=== PATIENT | female | born 1970 | race Caucasian/White ===

== ENCOUNTER 2016-05-19 09:14 | Inpatient (IN) | payer OTHER ==
--- NOTE | ~2016-05-19 | OR ---
Unit #: [id number] #: [id number] Patient: TERE ARANDA [id number] [address] [place], [place] [address] [id number] I MR#: [id number] NAME: TERE ARANDA ROOM: 457 Date of Procedure: 05/22/2016 Admission Date: 05/21/2016 Surgeon: Tee Corona M.D. : 1970 Attending Physician: Salvador Uriarte M.D. Primary Care Physician: Fausto Dohsi M.D. OPERATIVE REPORT PROCEDURE PERFORMED Esophagogastroduodenoscopy with biopsy. INDICATIONS FOR PROCEDURE A 45-year-old lady with persistent severe nausea, vomiting, and epigastric pain, undergoing evaluation. She has history of lap band placement; however, there is no fluid in the lap band. MEDICATIONS Monitored anesthesia. POSTOPERATIVE FINDINGS 1. Lap band in place. 2. There was a large portion of stomach above the lap band causing a large hernial effect. There was a lot of food and fluids in that section, which was aspirated. 3. Mild gastritis. Biopsies taken. 4. Normal duodenum and distal duodenum. PLAN Symptomatic treatment for now. Diet discussed. We will consider discussing with LSA for removal of the lap band. DESCRIPTION OF PROCEDURE The patient was explained of the procedure, risks, and benefits along with risks and benefits of anesthesia. She was brought to the endoscopy room. Propofol anesthesia was given. Bite block was placed. The scope was passed down the mouth into the esophagus, stomach, duodenum, and distal duodenum. Findings as described. Contents from the esophagus were aspirated. She tolerated the procedure very well. No major complications were seen. Dictated by... Judith Vora/ruth TD: 05/22/2016 22:13 JOB #: [id number] Unit #: [id number] #: [id number] Patient: TERE ARANDA OPERATIVE REPORT X Tee Corona MD X PROCEDURE OPERATIVE NOTE
--- NOTE | ~2016-05-19 | OR ---
Unit #: [id number] #: [id number] Patient: TERE ARANDA [id number] [address] [address] [id number] Reina MR#: [id number] NAME: TERE ARANDA ROOM: [facility] Date of Procedure: 05/25/2016 Admission Date: 05/21/2016 Surgeon: Joseluis Lopez M.D. : 1970 Attending Physician: Salvador Uriarte M.D. Primary Care Physician: Fausto Doshi M.D. OPERATIVE REPORT PREOPERATIVE DIAGNOSES 1. Chronic nausea and vomiting. 2. Lap band intolerance. POSTOPERATIVE DIAGNOSES 1. Chronic nausea and vomiting. 2. Lap band intolerance. PROCEDURES PERFORMED 1. Removal of laparoscopic adjustable gastric band. 2. Removal of laparoscopic band port. SIZE TESTER None. ANESTHESIA General anesthesia. ESTIMATED BLOOD LOSS Minimal. IV FLUIDS 800 crystalloid. COMPLICATIONS None. INDICATIONS FOR PROCEDURE The patient is a 45-year-old lady with long-term lap band, who presents with difficulty with tolerating oral intake. She presents for lap band removal. DESCRIPTION OF PROCEDURE The patient was taken to the operating theater and placed in supine position. General anesthesia was induced. Her abdomen was prepped and draped. A 10-mm Visiport was then placed into the left upper quadrant without difficulty. The abdomen was insufflated to 15 mmHg with CO2. Direct inspection of the abdomen revealed normal appearing tubing and I saw no evidence of inflammation or infection. An incision was then made over her previous lap band port site. This was located and free of its connective tissue to the fascia. I then cut the tubing and dropped this down to the abdomen. I placed a 5-mm port at this site. I then Unit #: [id number] #: [id number] Patient: TERE ARANDA placed a right upper quadrant 5 mm port. There were adhesions to the band and I saw no gross abnormalities. I did not see an obvious slip. These adhesions were taken down. I cut the band. This was then removed from the abdominal cavity. I then removed our trocars. I closed with interrupted 4-0 Vicryl. The patient tolerated the procedure well and sent to recovery room in good condition. Dictated by... Joseluis Lopez M.D. JNO/modl TD: 05/26/2016 06:05 JOB #: [id number] OPERATIVE REPORT X Joseluis Lopez MD PROCEDURE OPERATIVE NOTE
--- NOTE | ~2016-05-19 | MY11 ---
[facility] A Service of [facility] RADIOLOGY TEXT RESULTS PATIENT: TERE ARANDA LOCATION: [facility] : [birth year] UNIT #: [id number] AGE: [address]: Fausto Doshi MD SEX: F ORDER DR: [id number] [place] [id number] O MR#: [id number] Acc #: [id number] NAME: TERE ARANDA : 1970 SEX: F STUDY DATE/TIME: 05/19/2016 9:51 UNIT: [facility] ROOM: STUDY DESCRIPTION: MY Mammogram Screening Dig Alan Attending Physician: Fausto Doshi M.D. Referring Physician: Fausto Doshi M.D. Ordering Physician: Fausto Doshi M.D. Primary Care Physician: Salvador Uriarte M.D. MEDICAL IMAGING REPORT This report is preliminary unless electronic signature is present. EXAM Digital screening mammogram with CAD. INDICATION Routine screening. PROCEDURE Bilateral CC and MLO views obtained on a digital mammography unit. FDA-approved CAD device is utilized. COMPARISON 05/17/2015 FINDINGS Scattered fibroglandular density. No dominant mass. No suspicious calcification. IMPRESSION Negative screening mammogram. Screening interval in 1 year is suggested. Patients over the age of 40 are entered into a reminder system with target due date for the next mammogram. A result letter will also be sent to the patient. BIRADS: 1 Negative Dictated by... Mahad Tinsley M.D. THIS IS AN ELECTRONICALLY VERIFIED REPORT [facility] A Service of [facility] RADIOLOGY TEXT RESULTS PATIENT: TERE ARANDA LOCATION: [facility] : [birth year] UNIT #: [id number] AGE: [address]: Fausto Doshi MD SEX: F ORDER DR: Mahad Tinsley M.D. at 05/20/2016 7:08 AM EED/yasminw TD: 05/19/2016 11:53 JOB #: [id number] MEDICAL IMAGING REPORT
--- NOTE | ~2016-05-19 | HP ---
Unit #: [id number] #: [id number] Patient: TERE TOM [id number] [address] [address] [id number] I MR#: [id number] NAME: TERE TOM ROOM: 457 Age: 45 Sex: F Admission Date: 05/21/2016 : 1970 Attending Physician: Salvador Uriarte M.D. Primary Care Physician: Fausto Doshi M.D. HISTORY AND PHYSICAL ADMISSION DIAGNOSES 1. Intractable nausea and vomiting. 2. History of gastroesophageal reflux disease. 3. History of hiatal hernia. 4. History of morbid obesity, status post Lap-Band. 5. Anemia of chronic disease. 6. Continued tobacco use. HISTORY OF PRESENT ILLNESS Ms. Tom is a 45-year-old female with a history of morbid obesity, GERD, and hiatal hernia, patient of Dr. Doshi, who is on PPI chronically secondary to severe acid reflux secondary to Lap-Band and hiatal hernia. Apparently, she was seen by Dr. Doshi and was sent as a direct admit secondary to intractable nausea and vomiting for two weeks. Patient denies any fever or chills and denies any chest pain, shortness of air, dyspnea, headache, dizziness, abdominal pain, or diarrhea. So a 12-point review of systems on this patient basically is negative except as above. PAST MEDICAL HISTORY 1. History of morbid obesity. 2. Hiatal hernia. 3. Gastroesophageal reflux disease. 4. Previous history of depression and anxiety. PAST SURGICAL HISTORY 1. Lap-Band. 2. Upper scope per Dr. Corona. HOME MEDICATIONS 1. ProAir p.r.n. 2. Benadryl. 3. Zyrtec. 4. Vitamin D3. 5. Dulera. 6. Ventolin. 7. Claritin. 8. Dexilant. ALLERGIES ASPIRIN, SALICYLATES, AND PYRAZOLES. SOCIAL HISTORY She is an active smoker. Denies any alcohol or illicit drugs. Unit #: [id number] #: [id number] Patient: TERE TOM FAMILY HISTORY Unremarkable. PHYSICAL EXAMINATION GENERAL: Patient is a 45-year-old female in no acute distress. VITAL SIGNS: Blood pressure 105/55, heart rate 63, respirations 20, and temperature 97.9. HEENT: Head is atraumatic. Pupils equal, round, and reactive to light and accommodation. Extraocular muscles intact. Oropharynx clear. NECK: Supple. No mass, no JVD, and no bruits. CHEST: Diminished bilaterally at bases. CARDIOVASCULAR: S1 and S2. No murmurs. ABDOMEN: Soft, nontender, and nondistended. LOWER EXTREMITIES: Without any significant cyanosis, clubbing, or edema. NEUROLOGIC: Grossly intact with no focal deficits. Alert and oriented x3. DIAGNOSTIC STUDIES LABORATORY: White count is 11.9 and hemoglobin and hematocrit 9.6 and 30. ASSESSMENT AND PLAN 1. Intractable nausea and vomiting. Continue supportive care and symptomatic management. Dr. Corona to see. Most likely will need an EGD and also may need a gastric emptying study to rule out gastroparesis. 2. History of morbid obesity, status post Lap-Band. 3. History of hiatal hernia with gastroesophageal reflux disease. Continue proton pump inhibitor. 4. Anemia of chronic disease most likely related to Lap-Band. 5. Leukocytosis. Will monitor. If it is persistent, will check a urinalysis and chest x-ray. 6. Tobacco use. Counseled on importance of quitting. 7. Gastrointestinal and deep venous thrombosis prophylaxis. Continue proton pump inhibitor and put on TEDs to her lower extremities. 1. Dictated by Judith Frankel/venita TD: 05/21/2016 21:10 JOB #: [id number] HISTORY AND PHYSICAL X Anjum Cortez MD X HISTORY AND PHYSICAL
--- NOTE | ~2016-05-19 | CR63 ---
[facility] A Service of [facility] RADIOLOGY TEXT RESULTS PATIENT: TERE ARANDA LOCATION: [facility] 457-01 : [birth year] UNIT #: [id number] AGE: [address]: Salvador Uriarte MD SEX: F ORDER DR: [id number] [facility] [address] [place], [place] [address] [id number] I MR#: [id number] Acc #: [id number] NAME: TERE ARANDA : 1970 SEX: F STUDY DATE/TIME: 05/23/2016 17:22 UNIT: B ROOM: [facility] STUDY DESCRIPTION: CR Chest 2 View Attending Physician: Salvador Uriarte M.D. Ordering Physician: Luz Clark M.D. Primary Care Physician: Fausto Doshi M.D. MEDICAL IMAGING REPORT This report is preliminary unless electronic signature is present EXAM PA and lateral chest HISTORY Cough and asthma for 1 month FINDINGS 2 views of the chest demonstrate the cardiac size and pulmonary vascularity are normal. No infiltrates or effusions. Laparoscopic gastric band in the medial left upper quadrant. IMPRESSION No acute findings. Dictated by... Marcello Chang M.D. THIS IS AN ELECTRONICALLY VERIFIED REPORT Marcello Chang M.D. at 05/24/2016 1:57 PM DFL/to TD: 05/24/2016 11:55 JOB #: [id number] MEDICAL IMAGING REPORT COPY
--- NOTE | ~2016-05-19 | DS ---
Unit #: [id number] #: [id number] Patient: TERE ARANDA [id number] [facility] [address] [facility] [place] [facility]. [place], [place] [address] [id number] I MR#: [id number] NAME: TERE ARADNA ROOM: [facility] Age: 45 Sex: F Admission Date: 05/21/2016 : 1970 Discharge Date: 05/26/2016 Attending Physician: Salvador Uriarte M.D. Primary Care Physician: Fausto Doshi M.D. DISCHARGE SUMMARY FINAL DIAGNOSES 1. Intractable nausea and vomiting which is resolved. 2. Status post EGD which was done by Dr. Corona which showed lap band in place. There was a large portion of stomach above the lap band causing a large hernia effect. There was a lot of food and fluids in that section, which was aspirated. Mild gastritis. Biopsies taken. Normal duodenum and distal duodenum. 3. Anemia of chronic disease. 4. Tobacco abuse. DISCHARGE MEDICATIONS 1. Albuterol inhaler. Continue home dose. 2. Tylenol 325 mg q.6 h. p.r.n. 3. Benadryl p.r.n. 4. Claritin 10 mg p.r.n. 5. Singulair 10 mg daily. 6. Hydrocodone 5/325 one tablet q.8 h. p.r.n. 7. Dexilant 60 mg daily. 8. Vitamin D daily. CONSULTATIONS DURING hospitalization 1. Dr. Corona from gastroenterology services. 2. Dr. Lopez from [facility]. PROCEDURES PERFORMED 1. EGD. 2. Lap band removal. DIAGNOSTIC STUDIES LABORATORY: Lab workup on discharge WBC 9.0, hemoglobin 8.1, hematocrit 24.8 and platelet count of 176, sodium 140, potassium 3.8, chloride 110, BUN 5, creatinine 0.6, liver enzymes are stable, blood cultures are no growth. HOSPITAL COURSE Miss Berry is a 45-year-old female who was admitted by my colleague, Dr. Cortez, with intractable nausea and vomiting. Patient was admitted to the fourth floor in [facility]. Dr. Corona was consulted. Patient had EGD done. Findings are as above. Patient has had significant weight loss and not able to tolerate any food or any liquid. Dr. Lopez was consulted and patient had lap band removal. She is doing very well. She is very happy and is able to eat some. Patient is being discharge home on above medication. Unit #: [id number] #: [id number] Patient: TERE ARANDA DISCHARGE INSTRUCTIONS 1. Follow up with primary care provider in one week. 2. Follow up with Dr. Corona in one month. Dictated by... Luz Clark M.D. MARILEE/enzo TD: 05/27/2016 22:25 JOB #: [id number] DISCHARGE SUMMARY X Luz Clark MD X DISCHARGE SUMMARY
--- NOTE | ~2016-05-19 | CO ---
Unit #: [id number] #: [id number] Patient: TERE ARANDA [id number] [address] [place], [place] [address] [id number] I MR#: [id number] NAME: TERE ARANDA ROOM: [facility] Age: 45 Sex: F Admission Date: 05/21/2016 : 1970 Attending Physician: Salvador Uriarte M.D. Primary Care Physician: Fausto Doshi M.D. Consultation Date: 05/25/2016 CONSULTATION REPORT BRIEF HISTORY The patient is a 45-year-old lady, who has a long history of intermittent nausea and vomiting. She was admitted to the hospital, worked up with GI Medicine and found to have hiatal hernia with a gastric outlet obstruction secondary to lap-band. She has been noncompliant with the lap-band, has not seen our program for many years. She denies any fevers or chills. No abdominal pain. PAST MEDICAL HISTORY She has had no other abdominal operations. MEDICATIONS Proton pump inhibitors, Iysel-D, vitamin D, Benadryl, loratadine. SOCIAL HISTORY No smoking. No alcohol. FAMILY HISTORY Negative for GI malignancy. REVIEW OF SYSTEMS No cardiopulmonary complaints at this time. Else, 10 systems reviewed and negative. PHYSICAL EXAMINATION GENERAL: She is awake, alert, and appropriate. VITAL SIGNS: Currently afebrile. HEENT: Unremarkable. NECK: Supple. No JVD. Trachea midline. LUNGS: Clear to auscultation. Bilateral breath sounds symmetric. CARDIOVASCULAR: Regular rate and rhythm. ABDOMEN: Soft, nontender, and nondistended. I palpate no masses. No hepatosplenomegaly. EXTREMITIES: No clubbing, cyanosis, or edema. DIAGNOSTIC STUDIES LABORATORY RESULTS: Show a white count of 8.3, hemoglobin 8.1. Chemistries are normal. ASSESSMENT AND PLAN Chronic gastric outlet obstruction secondary to a lap-band. PLAN Recommend removal of lap-band. Discussed in detail. Unit #: [id number] #: [id number] Patient: TERE ARANDA Dictated by... Judith Ramirez/ruth TD: 05/25/2016 20:50 JOB #: [id number] CONSULTATION REPORT X Joseluis Lopez MD CONSULTATION REPORT
--- NOTE | ~2016-05-19 | CO ---
Unit #: [id number] #: [id number] Patient: TERE ARANDA [id number] [address] [address] [id number] I MR#: [id number] NAME: TERE ARANDA ROOM: [facility] Age: 45 Sex: F Admission Date: 05/21/2016 : 1970 Attending Physician: Salvador Uriarte M.D. Primary Care Physician: Fausto Doshi M.D. Consultation Date: 05/22/2016 CONSULTATION REPORT REASON FOR CONSULTATION Persistent nausea and vomiting. HISTORY OF PRESENTING ILLNESS The patient reports a 2-week history of persistent nausea and vomiting. She has had episodes similar to this in the past; however, this is much worse, unable to even hold down liquids. She denies fevers, chills, shortness of breath, abdominal pain, change in bowel habits. The patient does report having a Lap-Band placed about 10 years ago; however, she describes it as a donut. There is no fluid currently in it. PAST MEDICAL HISTORY Hiatal hernia, GERD, depression, anxiety, previous Lap-Band placement about 10 years ago, previous EGD in 02/2015 showing significant esophagitis, gastritis as well as a small duodenal ulcer. HOME MEDICATIONS ProAir, Benadryl, Zyrtec, vitamin D3, Dulera, Ventolin, Claritin, Dexilant. ALLERGIES Aspirin, pyrazole. SOCIAL HISTORY The patient is an active everyday smoker. Denies alcohol or illicit drug use. FAMILY HISTORY Reviewed and noncontributory. REVIEW OF SYSTEMS A complete 10-point review of systems was completed and negative except as mentioned in the HPI. PHYSICAL EXAMINATION GENERAL: The patient is a pleasant 45-year-old female, currently in no acute distress. VITAL SIGNS: Temperature is 97.8, pulse is 65, respirations 16, blood pressure is 106/62. HEENT: PERRLA. NECK: Supple. CARDIAC: S1 and S2. LUNGS: Clear to auscultation. ABDOMEN: Soft, rounded, nontender, nondistended. Positive bowel sounds. NEUROLOGIC: The patient is alert, awake, and oriented x3. Unit #: [id number] #: [id number] Patient: TERE ARANDA DIAGNOSTIC STUDIES LABORATORY RESULTS: Chemistry is normal. White count 7.3, hemoglobin is 9.1, hematocrit is 28.4, MCV and MCH are 75.1 and 24 respectively, platelets are 157. ASSESSMENT/PLAN 1. Persistent nausea and vomiting. Continue PPI therapy. Continue Phenergan and Zofran as needed. We will plan an esophagogastroduodenoscopy today for further evaluation. Further recommendations to follow. 2. History of gastroesophageal reflux disease, on chronic PPI therapy. Thank you for this interesting consult. We will continue to follow along. Dictated by... Marisela John A.P.R.N. for Judith Vora/ruth TD: 05/23/2016 00:27 JOB #: [id number] CONSULTATION REPORT X X CONSULTATION REPORT
[~2016-05-19 09:14] MED LIST: ALBUTEROL0.83 MG/ML IH; ALBUTEROL17 GM INH; AMOXICILLIN; BENADRYL25 M1 PO; BENADRYL25 M3 PO; CARAFATE1 G PO; CELEBREX PO; CYMBALTA; DULERA 100 MCG/13 GM IH; OMEPRAZOLE40 M1 PO; PROAIR HFA8.5 GM IH; PROTONIX PO; ROBAXIN500 MG PO; SEROQUEL50 M1 PO; SINGULAIR; VOLTAREN75 MG PO
[2016-05-21] MEDS ORDERED: VITAMIN D31000 UNIT PO (15:40)
[2016-05-21] MEDS ORDERED: MONTELUKAST SOD10 MG PO (15:40)
[2016-05-21] MEDS ORDERED: DULERA 100 MCG/13 GM INH (15:41)
[2016-05-21] MEDS ORDERED: ALBUTEROL17 GM INH (15:42)
[2016-05-21] MEDS ORDERED: TYL325 PO (15:42)
[2016-05-21] MEDS ORDERED: CLARITIN10 M2 PO (15:42)
[2016-05-21] MEDS ORDERED: DEXILANT60 MG PO (15:46)
[2016-05-21 16:11] LABS: BASOPHIL# 0.1 X10e3 (0-0.3); BASOPHIL% 0.5 % (0-2.5); EOSINOPHIL# 0.3 X10e3 (0-0.7); EOSINOPHIL% 2.6 % (0.0-7.0); HEMATOCRIT 30.6 % (35.0-45.0); HEMOGLOBIN 9.6 gm/dL (12.0-16.0); LYMPHOCYTE# 2.5 X10e3 (1.0-3.5); MEAN CELL VOLUME 75.4 FL (83-96); MEAN CORPUSCULAR HEMOGLOBIN 23.7 PG (28-34); MEAN CORPUSCULAR HGB CONC 31.4 g/dL (30-36); MONOCYTE# 0.6 X10e3 (0-1.0); NEUTROPHIL# 8.5 X10e3 (1.5-7.1); NEUTROPHIL% 70.9 % (40-75); PLATELET COUNT 166 X10e3 (140-420); RED BLOOD COUNT 4.05 X10e (3.90-5.30); RED CELL DISTRIBUTION WIDTH 17.8 % (11.0-15.5); WHITE BLOOD COUNT 11.9 X10e3 (4.0-10.5)
[2016-05-21 16:37] LABS: DIFF IND NO
[2016-05-21 19:36] LABS: ALBUMIN SERUM 3.9 g/dL (3.5-5.0); ALKALINE PHOSPHATASE 61 U/L (32-92); ALT (SGPT) 8 U/L (10-40); AST (SGOT) 14 U/L (10-42); BILIRUBIN,TOTAL 0.5 mg/dL (0.2-2.0); BLOOD UREA NITROGEN 11 mg/dL (9-23); BUN/CREATININE RATIO 15.71; CALCIUM SERUM 8.3 mg/dL (8.4-10.2); CARBON DIOXIDE 26 mmol/L (22-31); CHLORIDE 103 mmol/L (100-111); CREATININE SERUM 0.7 mg/dL (0.6-1.4); GLOM FILT RATE Estimated ABOVE60 mL/min (>60); GLUCOSE FASTING 89 mg/dL (70-110); POTASSIUM 3.8 mmol/L (3.5-5.1); SODIUM 132 mmol/L (135-145)
[2016-05-22 03:51] LABS: BASOPHIL% 0.6 % (0-2.5); EOSINOPHIL# 0.4 X10e3 (0-0.7); EOSINOPHIL% 5.3 % (0.0-7.0); HEMATOCRIT 28.4 % (35.0-45.0); HEMOGLOBIN 9.1 gm/dL (12.0-16.0); LYMPHOCYTE# 2.5 X10e3 (1.0-3.5); LYMPHOCYTE% 34.8 % (17.0-45.0); MEAN CELL VOLUME 75.1 FL (83-96); MEAN CORPUSCULAR HGB CONC 31.9 g/dL (30-36); MEAN PLATELET VOLUME 9.1 FL (6.5-11.5); MONOCYTE# 0.5 X10e3 (0-1.0); MONOCYTE% 6.3 % (3.0-12.0); NEUTROPHIL# 3.8 X10e3 (1.5-7.1); PLATELET COUNT 157 X10e3 (140-420); RED BLOOD COUNT 3.78 X10e (3.90-5.30); RED CELL DISTRIBUTION WIDTH 17.5 % (11.0-15.5); WHITE BLOOD COUNT 7.3 X10e3 (4.0-10.5)
[2016-05-22 03:53] LABS: DIFF IND NO
[2016-05-22 04:20] LABS: ALBUMIN SERUM 3.5 g/dL (3.5-5.0); ALKALINE PHOSPHATASE 56 U/L (32-92); ALT (SGPT) 7 U/L (10-40); AST (SGOT) 12 U/L (10-42); BILIRUBIN,TOTAL 0.4 mg/dL (0.2-2.0); BLOOD UREA NITROGEN 7 mg/dL (9-23); CALCIUM SERUM 8.6 mg/dL (8.4-10.2); CARBON DIOXIDE 26 mmol/L (22-31); CHLORIDE 109 mmol/L (100-111); CREATININE SERUM 0.7 mg/dL (0.6-1.4); GLOM FILT RATE Estimated ABOVE60 mL/min (>60); GLUCOSE FASTING 88 mg/dL (70-110); POTASSIUM 4.1 mmol/L (3.5-5.1); PROTEIN TOTAL SERUM 6.4 g/dL (6.0-8.3); SODIUM 141 mmol/L (135-145)
[2016-05-23 03:34] LABS: HEMATOCRIT 28.3 % (35.0-45.0); MEAN CELL VOLUME 75.5 FL (83-96); MEAN CORPUSCULAR HEMOGLOBIN 23.9 PG (28-34); MEAN CORPUSCULAR HGB CONC 31.7 g/dL (30-36); MEAN PLATELET VOLUME 9.7 FL (6.5-11.5); RED BLOOD COUNT 3.75 X10e (3.90-5.30); RED CELL DISTRIBUTION WIDTH 17.8 % (11.0-15.5)
[2016-05-23 03:58] LABS: ALBUMIN SERUM 3.2 g/dL (3.5-5.0); ALKALINE PHOSPHATASE 54 U/L (32-92); ALT (SGPT) 8 U/L (10-40); AST (SGOT) 11 U/L (10-42); BILIRUBIN,TOTAL 0.9 mg/dL (0.2-2.0); BLOOD UREA NITROGEN 10 mg/dL (9-23); BUN/CREATININE RATIO 14.28; CALCIUM SERUM 8.2 mg/dL (8.4-10.2); CARBON DIOXIDE 24 mmol/L (22-31); CHLORIDE 111 mmol/L (100-111); CREATININE SERUM 0.7 mg/dL (0.6-1.4); GLOM FILT RATE Estimated ABOVE60 mL/min (>60); GLUCOSE FASTING 94 mg/dL (70-110); POTASSIUM 4.1 mmol/L (3.5-5.1); PROTEIN TOTAL SERUM 6.4 g/dL (6.0-8.3); SODIUM 138 mmol/L (135-145)
[2016-05-23 18:17] LABS: URINE SOURCE CLEAN CATCH
[2016-05-23 18:21] LABS: URINE APPEARANCE CLEAR; URINE BILIRUBIN NEG (NEG); URINE BLOOD 1+ (NEG); URINE COLOR YELLOW; URINE GLUCOSE NEG (NEG); URINE KETONE TRACE (NEG); URINE LEUKOCYTE ESTERASE NEG (NEG); URINE NITRATE NEG (NEG); URINE PROTEIN NEG (NEG); URINE SPECIFIC GRAVITY 1.033 (1.003-1.035)
[2016-05-23 18:24] LABS: CULTURE INDICATED? NO; URINE BACTERIA AUWI NEG (NEGATIVE); URINE SQUAMOUS EPITHELIAL CELL OCC /[HPF]; UWBCS1 AUWI 0-2 (0-5)
[2016-05-24 03:03] LABS: HEMATOCRIT 25.4 % (35.0-45.0); HEMOGLOBIN 8.1 gm/dL (12.0-16.0); MEAN CELL VOLUME 74.8 FL (83-96); MEAN CORPUSCULAR HEMOGLOBIN 23.9 PG (28-34); RED BLOOD COUNT 3.39 X10e (3.90-5.30); RED CELL DISTRIBUTION WIDTH 17.7 % (11.0-15.5); WHITE BLOOD COUNT 13.8 X10e3 (4.0-10.5)
[2016-05-25 03:36] LABS: BASOPHIL# 0.1 X10e3 (0-0.3); BASOPHIL% 0.7 % (0-2.5); EOSINOPHIL# 0.6 X10e3 (0-0.7); EOSINOPHIL% 7.1 % (0.0-7.0); HEMATOCRIT 25.1 % (35.0-45.0); HEMOGLOBIN 8.1 gm/dL (12.0-16.0); LYMPHOCYTE# 2.4 X10e3 (1.0-3.5); LYMPHOCYTE% 29.3 % (17.0-45.0); MEAN CELL VOLUME 75.2 FL (83-96); MEAN CORPUSCULAR HEMOGLOBIN 24.2 PG (28-34); MEAN CORPUSCULAR HGB CONC 32.2 g/dL (30-36); MEAN PLATELET VOLUME 9.5 FL (6.5-11.5); MONOCYTE# 0.7 X10e3 (0-1.0); MONOCYTE% 8.5 % (3.0-12.0); NEUTROPHIL# 4.5 X10e3 (1.5-7.1); NEUTROPHIL% 54.4 % (40-75); PLATELET COUNT 157 X10e3 (140-420); RED BLOOD COUNT 3.33 X10e (3.90-5.30); RED CELL DISTRIBUTION WIDTH 18.2 % (11.0-15.5); WHITE BLOOD COUNT 8.3 X10e3 (4.0-10.5)
[2016-05-25 03:37] LABS: DIFF IND NO
[2016-05-25 04:07] LABS: ALKALINE PHOSPHATASE 50 U/L (32-92); ALT (SGPT) 8 U/L (10-40); AST (SGOT) 13 U/L (10-42); BILIRUBIN,TOTAL 0.5 mg/dL (0.2-2.0); BLOOD UREA NITROGEN 5 mg/dL (9-23); BUN/CREATININE RATIO 8.33; CALCIUM SERUM 8.2 mg/dL (8.4-10.2); CARBON DIOXIDE 24 mmol/L (22-31); CHLORIDE 110 mmol/L (100-111); CREATININE SERUM 0.6 mg/dL (0.6-1.4); GLOM FILT RATE Estimated ABOVE60 mL/min (>60); GLUCOSE FASTING 85 mg/dL (70-110); POTASSIUM 3.8 mmol/L (3.5-5.1); PROTEIN TOTAL SERUM 5.6 g/dL (6.0-8.3); SODIUM 140 mmol/L (135-145)
[2016-05-26 03:43] LABS: BASOPHIL% 0.2 % (0-2.5); EOSINOPHIL% 0.1 % (0.0-7.0); HEMATOCRIT 24.8 % (35.0-45.0); HEMOGLOBIN 8.1 gm/dL (12.0-16.0); LYMPHOCYTE# 0.5 X10e3 (1.0-3.5); LYMPHOCYTE% 5.7 % (17.0-45.0); MEAN CELL VOLUME 75.3 FL (83-96); MEAN CORPUSCULAR HEMOGLOBIN 24.5 PG (28-34); MEAN CORPUSCULAR HGB CONC 32.6 g/dL (30-36); MEAN PLATELET VOLUME 10.1 FL (6.5-11.5); MONOCYTE# 0.2 X10e3 (0-1.0); MONOCYTE% 2.3 % (3.0-12.0); NEUTROPHIL# 8.2 X10e3 (1.5-7.1); NEUTROPHIL% 91.7 % (40-75); PLATELET COUNT 176 X10e3 (140-420); RED BLOOD COUNT 3.29 X10e (3.90-5.30)
[2016-05-26 03:44] LABS: DIFF IND NO
[2016-05-26] MEDS ORDERED: HYDROCODON-ACE1 EAC9 PO (15:50)
== END 2016-05-26 16:25 | disposition home or self-care (01) | DRG 988 ==
LOC: SMAM 09:14 → C4B 05-21 13:05
PROVIDERS: Internal Medicine; Physician Assistant Medical; Surgery
PROC: 0DB68ZX Excision of Stomach, Via Natural or Artificial Opening Endoscopic, Diagnostic (ICD-10-PCS; 2016-05-22 15:37)
PROC: 0DP64CZ Removal of Extraluminal Device from Stomach, Percutaneous Endoscopic Approach (ICD-10-PCS; principal; 2016-05-25 12:00)
DX: K95.09 Other complications of gastric band procedure (principal); K31.1 Adult hypertrophic pyloric stenosis; E66.01 Morbid (severe) obesity due to excess calories; D63.8 Anemia in other chronic diseases classified elsewhere; F17.210 Nicotine dependence, cigarettes, uncomplicated; D50.9 Iron deficiency anemia, unspecified; R11.2 Nausea with vomiting, unspecified; K21.9 Gastro-esophageal reflux disease without esophagitis; K44.9 Diaphragmatic hernia without obstruction or gangrene; Z71.6 Tobacco abuse counseling; D72.829 Elevated white blood cell count, unspecified; Y83.9 Surgical procedure, unspecified as the cause of abnormal reaction of the patient, or of later complication, without mention of misadventure at the time of the procedure; Z91.11 Patient's noncompliance with dietary regimen; K29.70 Gastritis, unspecified, without bleeding; R50.9 Fever, unspecified
CPT/HCPCS: 71020; 80053; 81003; 84703; 85025; 85027; 86850; 86900; 86901; 86923; 87040; 88305; 88312; 94640; 94664; 94760; G0202; G0378; J0131; J0295; J0330; J0690; J1100; J1885; J2250; J2405; J2550; J2710; J2765; J3010

== ENCOUNTER → 2016-07-09 | Day surgery (SDC) | payer OTHER ==
[~2016-07-09] MED LIST changes: +CLARITIN10 M2 PO; +DEXILANT60 MG PO; +DULERA 100 MCG/13 GM INH; +HYDROCODON-ACE1 EAC9 PO; +MONTELUKAST SOD10 MG PO; +TYL325 PO; +VITAMIN D31000 UNIT PO
--- NOTE | ~2016-07-09 | OR ---
Unit #: [id number] #: [id number] Patient: TERE ARANDA [id number] [address] [address] [id number] O MR#: [id number] NAME: TERE ARANDA ROOM: Date of Procedure: 07/09/2016 Admission Date: 07/09/2016 Surgeon: Tee Corona M.D. : 1970 Attending Physician: Tee Corona M.D. Primary Care Physician: Fausto Doshi M.D. OPERATIVE REPORT PROCEDURES PERFORMED Colonoscopy with snare polypectomy. INDICATIONS FOR PROCEDURE The patient with severe iron-deficiency anemia, undergoing evaluation with colonoscopy. MEDICATIONS Monitored anesthesia. POSTOPERATIVE FINDINGS 1. Small polyp, 6 mm, transverse colon, snared and sent for histopathology. 2. Rest of the colon exam to cecum was good. Prep was good. PLAN Follow up on the pathology report. If adenomatous, repeat colonoscopy in 5 years. DESCRIPTION OF PROCEDURE The patient was explained of the procedure, risks, and benefits along with risks and benefits of anesthesia. She was brought to the endoscopy room. Propofol anesthesia was given. Rectal exam was done, which was normal. Colonoscope was lubricated, passed up the rectum, advanced under direct vision all the way to the cecum. Cecum was identified by ileocecal valve and appendiceal orifice. I then started to pull the scope out carefully looking. Polyp seen in transverse colon was snared and sent for histopathology. Rest of the mucosa was normal and healthy. I retroflexed in the rectum, small hemorrhoids seen. The scope was gently pulled out. She tolerated it well. Dictated by... Judith Vora/ruth TD: 07/09/2016 23:04 JOB #: [id number] CC: Salvador Uriarte M.D. Unit #: [id number] #: [id number] Patient: TERE ARANDA OPERATIVE REPORT Page 1 of 1 X Tee Corona MD PROCEDURE OPERATIVE NOTE
[2016-07-09 10:20] LABS: BASOPHIL# 0.1 X10e3 (0-0.3); BASOPHIL% 0.6 % (0-2.5); EOSINOPHIL# 0.3 X10e3 (0-0.7); EOSINOPHIL% 3.2 % (0.0-7.0); HEMOGLOBIN 10.3 gm/dL (12.0-16.0); LYMPHOCYTE% 31.9 % (17.0-45.0); MEAN CELL VOLUME 75.1 FL (83-96); MEAN CORPUSCULAR HEMOGLOBIN 23.3 PG (28-34); MEAN CORPUSCULAR HGB CONC 31.1 g/dL (30-36); MEAN PLATELET VOLUME 9.1 FL (6.5-11.5); MONOCYTE# 0.4 X10e3 (0-1.0); MONOCYTE% 4.7 % (3.0-12.0); NEUTROPHIL# 5.7 X10e3 (1.5-7.1); NEUTROPHIL% 59.6 % (40-75); PLATELET COUNT 224 X10e3 (140-420); RED CELL DISTRIBUTION WIDTH 19.1 % (11.0-15.5); WHITE BLOOD COUNT 9.5 X10e3 (4.0-10.5)
[2016-07-09 10:26] LABS: DIFF IND NO
== END | disposition home or self-care (01) ==
LOC: COPS 07:41
PROVIDERS: Internal Medicine
DX: D12.3 Benign neoplasm of transverse colon (principal); D50.9 Iron deficiency anemia, unspecified; K64.9 Unspecified hemorrhoids; K21.9 Gastro-esophageal reflux disease without esophagitis; J45.909 Unspecified asthma, uncomplicated; Z98.84 Bariatric surgery status; Z88.6 Allergy status to analgesic agent
CPT/HCPCS: 84703; 85025; 88305